=== PATIENT | male | born 1985 | race Hispanic/Latino ===

== ENCOUNTER 2018-11-17 15:02 | Emergency (ER) | payer OTHER, SELFPAY ==
[2018-11-17 16:35] LABS: Bilirubin Negative (Negative); Blood, Urine Negative (Negative); Clarity CLEAR (Clear); Glucose, Urine (Dipstick) Negative (Negative); Leukocyte Negative (Negative); Nitrite Negative (Negative); Protein, Urine (Dipstick) Negative (Neg-Trace); Specific Gravity, Urine 1.006 (1.002-1.036); Urobilinogen 0.2 mg/dL (0.2-1.0)
--- NOTE | 2018-11-17 18:09 | CT ---
CT ABDOMEN AND PELVIS WITHOUT CONTRAST: HISTORY: Inguinal hernia. COMPARISON: 11/27/2016 FINDINGS: ABDOMEN: The lung bases are clear. The liver, spleen, pancreas, and gallbladder regions all appear unremarkable. The right and left adrenal glands and the right and left kidneys are normal in size. There are no re nal calculi demonstrated. There is some minimal prominence to the right collecting system and ureter , which tapers to a normal caliber at the mid ureter level. There are no signs of any obstructing ca lculus. No bladder calculus identified. There is no significant periaortic or mesenteric adenopathy . PELVIS: The appendix is normal. There is soft tissue density in the region of the right inguinal ca nal. This would suggest a previous right hernia repair. There is a prominent fat-containing left in guinal hernia, with much more prominent herniation of fat than on the prior exam. No free fluid. So me minimal sigmoid diverticulosis is noted. No significant bony findings. IMPRESSION: 1. No evidence of renal or ureteral calculi. Normal appendix. 2. Minimal sigmoid diverticulosis. 3. Soft tissue density, suggesting a previous right inguinal hernia repair. There is a prominent, f at-containing left inguinal hernia noted. POS: [facility]
== END 2018-11-17 17:55 | disposition home or self-care (01) ==
LOC: ERS 15:02
DX: K40.90 Unilateral inguinal hernia, without obstruction or gangrene, not specified as recurrent (principal); F17.200 Nicotine dependence, unspecified, uncomplicated; Z79.1 Long term (current) use of non-steroidal anti-inflammatories (NSAID)
CPT/HCPCS: 74176; 81003

== ENCOUNTER 2018-12-23 09:29 | Day surgery (SDC) | payer OTHER ==
[2018-12-23] MEDS ORDERED: Ketorolac Tromethamine 30 MG/ML VIAL ONE (10:23)
[2018-12-23 10:30] LABS: #Basophils 0.1 thou/uL (0.0-0.2); #Eosinphils 0.3 thou/uL (0.0-0.7); #Lymphocytes 2.2 thou/uL (1.20-3.40); #Monocytes 0.6 thou/uL (0.11-0.59); #Neutrophils 3.7 thou/uL (1.40-6.50); %Eosinophils 4.7 % (0.0-10.0); %Lymphocytes 31.3 % (21.0-51.0); %Monocytes 9.2 % (0.0-10.0); %Neutrophils 53.9 % (42.0-75.0); Hemoglobin 15.5 g/dL (14.0-18.0); Mean Corpuscular Hemoglobin 31.1 pg (27.0-31.0); Mean Corpuscular Volume 88.8 fL (78.0-98.0); Platelet Count 196 thou/uL (130-400); RBC Distribution Width 11.4 % (11.5-14.5); Red Blood Cell (RBC) Count 4.98 mill/uL (4.70-6.10); White Blood Cell (WBC) Count 6.9 thou/uL (4.8-10.8)
[2018-12-23 10:47] LABS: Anion Gap 12 mmol/L (10-20); BUN (Urea Nitrogen) 14 mg/dL (8.9-20.6); Calc. Creatinine Clearance 0 mL/min (70-130); Calcium 9.6 mg/dL (7.8-10.44); Carbon Dioxide 25 mmol/L (22-29); Chloride 105 mmol/L (98-107); Estimated GFR-MDRD 87; Glucose 96 mg/dL (70-105); Potassium 4.2 mmol/L (3.5-5.1); Sodium 138 mmol/L (136-145)
[2018-12-23] MEDS ORDERED: Bupivacaine/Epinephrine 0.25% 30 ML VIAL ONE (11:30)
[2018-12-23] MEDS ORDERED: Midazolam HCl 2 mg/2 ml Vial ONE (11:33)
[2018-12-23] MEDS ORDERED: Fentanyl 100 MCG/2 ML VIAL ONE ×4 (11:33→14:51)
[2018-12-23] MEDS ORDERED: PROPOFOL 200 MG/20 ML VIAL ONE (13:06)
[2018-12-23] MEDS ORDERED: Rocuronium Bromide 10 MG/ML (10ML VIAL) ONE (13:06)
[2018-12-23] MEDS ORDERED: Ondansetron PF 4 MG/2 ML Vial ONE (13:06)
[2018-12-23] MEDS ORDERED: PHENYLEPHRINE-NS 100 MCG/ML 10 ML SYRINGE ONE (13:06)
[2018-12-23] MEDS ORDERED: Lidocaine 1% PF 5 ML VIAL ONE (13:06)
[2018-12-23] MEDS ORDERED: Dexamethasone 20 MG/5 ML VIAL ONE (13:06)
[2018-12-23] MEDS ORDERED: Glycopyrrolate 0.2 MG/ML 5 ML SYRINGE ONE (13:06)
[2018-12-23] MEDS ORDERED: Bupivacaine PF 0.5% 30 ML VIAL ONE ×2 (13:35→13:48)
[2018-12-23] MEDS ORDERED: Promethazine HCl 25 MG/ML VIAL ONE (15:43)
[2018-12-23] MEDS ORDERED: HYDROcodone/Acetaminophen 5/325 mg Tablet ONE ×3 (16:44→16:46)
--- NOTE | 2018-12-23 19:10 | PDOC.OP ---
Operative Note - Operative Note Operative Note: PROCEDURE: Inguinal hernia repair SURGEON: Krystal Ashley M.D. DATE OF PROCEDURE: 12/23/2018 PREOPERATIVE DIAGNOSIS: Inguinal hernia, left, incarcerated POSTOPERATIVE DIAGNOSIS: Inguinal hernia, left, incarcerated indirect HISTORY: Patient with long-standing left inguinal hernia which is symptomatic. This become progressively more painful over the past couple months and CT scan in the ER showed incarcerated omentum within the hernia. Repair was recommended. FINDINGS: Incarcerated indurated omentum within the hernia sac which was resected. Large indirect defect which was repaired with extra large plug and patch. DESCRIPTION OF PROCEDURE: After informed consent was obtained and appropriate preoperative antibiotics were administered, the patient was taken to the operating room, placed in the supine position and general endotracheal anesthesia was administered. The inguinal area was prepped and draped in the standard sterile fashion and local anesthesia was infused to the skin and subcutaneous tissues overlying the inguinal canal. An oblique skin incision was made in the direction of the skin crease. Dissection was carried down to the external oblique aponeurosis which was carefully incised in the direction of its fibers through the enlarged external ring. The aponeurosis was mobilized off the underlying structures. The ilioinguinal nerve was clearly identified, mobilized off of the underlying cord structures and preserved. The inguinal cord was mobilized at the level of the pubic tubercle. The cremasteric muscles were divided and the cord contents and floor of the canal were carefully examined. An indirect hernia was identified. The hernia sac was dissected free of the cord contents down to the level of the peritoneal reflection. The hernia sac was opened and was found to contain incarcerated omentum. This was indurated and thickened and could not be completely reduced into the abdominal cavity. The indurated portion of the omentum was sequentially ligated and divided and the remainder of the omentum reduced into the abdominal cavity. The base of the hernia sac was encircled with a pursestring 3-0 Vicryl suture. The pursestring suture was secured and the hernia sac was resected. The base of the hernia sac was tied to the base of the Perfix plug. The Perfix plug was then placed into the internal ring and was tacked down to the internal oblique in a couple of locations. The patch was then secured to the pubic tubercle inferiorly, to the shelving edge of the inguinal ligament laterally, and secured at intervals to the internal oblique medially. A keyhole slit was created and placed around the inguinal cord contents and secured, and the ends secured to each other and to the underlying plug. The operative site was irrigated and hemostasis verified. Local anesthesia was infused into the muscles of the internal oblique medially. The On -Q pump was then tunneled into the wound and placed into the inguinal canal and primed. The external oblique aponeurosis was then closed with 2-0 Vicryl suture , taking care not to pull up any of the underlying cord contents or the On-Q pump tubing into the closure, and the remainder of the local was infused into the subcutaneous tissues circumferentially and to the skin. Joshua's fascia was reapproximated with 3-0 Monocryl sutures and the skin was closed with 4-0 subcuticular Monocryl sutures. Dermabond dressings were placed and the On-Q tubing secured with a Steri-Strip and dressed with Dermabond. The patient was extubated and taken to the recovery room in good condition. Estimated blood loss was minimal. There were no complications.
== END 2018-12-23 17:25 | disposition home or self-care (01) ==
LOC: SDC 09:29
PROVIDERS: ATTEND Surgery
PROC: 0YU60JZ Supplement Left Inguinal Region with Synthetic Substitute, Open Approach (ICD-10-PCS; principal; 2018-12-23)
DX: K40.30 Unilateral inguinal hernia, with obstruction, without gangrene, not specified as recurrent (principal); Z87.891 Personal history of nicotine dependence; Z79.891 Long term (current) use of opiate analgesic; Z79.899 Other long term (current) drug therapy
CPT/HCPCS: 36415; 80048; 85025; 88302; A4306; C1781; J0131; J1885; J2250; J2550; J3010; S0020